=== PATIENT | male | born 1995 | race Caucasian/White ===

== ENCOUNTER 2020-08-23 07:31 | Emergency (ER) | payer OTHER, SELFPAY ==
[2020-08-23 07:43] VITALS: BP 146/68; PULSE 68; O2SAT 99
[2020-08-23 07:44] VITALS: BP 146/68; PULSE 69; RESP 16; TEMP 36.6; O2SAT 98; BMI 24.1
--- NOTE | 2020-08-23 07:49 | XR_ITS ---
PROCEDURE: XR CHEST 2V CLINICAL HISTORY: COUGH COMPARISON: No exams were available for comparison FINDINGS: The cardiomediastinal silhouette and pulmonary vascularity are within normal limits. No lobar consolidation or collapse. There is a 6 mm nodular opacity in the left lung base nonspecific. Stability may be confirmed with follow-up. No acute bony abnormalities. IMPRESSION: No acute finding. Nonspecific left basilar nodular opacity Dictated by: Isrrael Horta MD 08/23/2020 08:56 Isrrael Horta MD in [place] 08/23/2020 08:56
[2020-08-23 07:58] LABS: Adenovirus,PCR Not Detected (NotDetected); Bordetella Pertussis Not Detected (NotDetected); Chlamydophila Pneumoniae, PCR Not Detected (NotDetected); Coronavirus 19, PCR Not Detected (NotDetected); Coronavirus 229E Not Detected (NotDetected); Coronavirus OC43 Not Detected (NotDetected); Coronovirus HKU1,PCR Not Detected (NotDetected); Human Metapneumovirus Not Detected (NotDetected); Influenza A, PCR Not Detected (NotDetected); Influenza AH1, 2009 Not Detected (NotDetected); Influenza AH1, PCR Not Detected (NotDetected); Influenza AH3,PCR Not Detected (NotDetected); Influenza B, PCR Not Detected (NotDetected); Mycoplasma Pneumoniae, PCR Not Detected (NotDetected); Parainfluenza 1, PCR Not Detected (NotDetected); Parainfluenza 2, PCR Not Detected (NotDetected); Parainfluenza 3, PCR Not Detected (NotDetected); Parainfluenza 4, PCR Not Detected (NotDetected); Respiratory Syncytial Virus Not Detected (NotDetected); Rhinovirus/Enterovirus Not Detected (NotDetected)
--- NOTE | 2020-08-23 08:27 | [facility].EDGENADL ---
ED Disposition Clinical Impression: Upper respiratory infection Disposition: Home, Self-Care Condition on Discharge: Good Instructions: DI for Acute Bronchitis Referrals: PCP,No [Primary Care Provider] - - Critical Care Critical Care Time: No Attestation: On 08/23/20, the high probability of a clinically significant, sudden or life threatening deterioration of the following system(s) required my full and direct attention, intervention and personal management. The time I documented below is in addition to time spent performing reported procedures but includes the following listed in this critical care notation. Medical Decision Making - Medical Records Medical records reviewed: Yes: I reviewed the patient's medical records. - Prasanna Inquiry Pt receiving controlled substance: No Vital Signs: 08/23/20 07:43 08/23/20 07:44 Temperature 98 F Temperature Source Oral Pulse Rate 68 Pulse Rate [Radial] 69 Respiratory Rate 16 Blood Pressure 146/68 H Blood Pressure [Right Arm] 146/68 H Blood Pressure Mean 86 Blood Pressure Mean [Right Arm] 94 Blood Pressure Position [Right Arm] Sitting 02 Sat by Pulse Oximetry 99 98 Oxygen Delivery Method Room Air Orders (Tests/Meds): ORDERS Category Date Time Status Chest XR 2 view (NOT portable) [XR chest 2V] Stat Exams 08/23/20 07:49 Taken Full Resp Panel w/COVID ([facility]) Routine Lab 08/23/20 07:50 Received Medical Decision Narrative: 35-year-old male presents with congestion and rhinorrhea for the last day. He is concerned about COVID-19, test has been ordered. Chest x-ray was ordered prior to my arrival, I doubt pneumonia acute coronary syndrome pulmonary embolism or any other emergent pathology. He is very comfortable in the bed with normal vital signs. X-ray read by myself shows no evidence of large consolidation or pleural effusion or pneumothorax. On reassessment he continues to be in no acute distress. Recommend quarantine precautions until symptomatic improvement per CDC guidelines and discharged home The COVID-19 test will return within the next couple hours. Plan to call patient at that time versus they called emergency department for the result. General Adult HPI - General Chief complaint: Upper Respiratory Infection Stated complaint: runny nose, congestion Time Seen by Provider: 08/23/20 08:15 Mode of Arrival: Ambulatory Limitations: No Limitations Description of Symptoms (Recalled from ER Triage Doc. by RN): TO ED PER [facility] CAR WITH C/O RUNNY NOSE, CHEST CONGESTION STARTING YESTERDAY. PT DENIES FEVER, CHILLS, NAUSEA, VOMITING. CPTA NONE - History of Present Illness HPI narrative: 35-year-old male presents with congestion and runny nose for the last day. No cough chest pain headache or fever. No ear pain. He is mainly here per request of COVID-19 test. Onset (ago): day(s) (1) Consistency: intermittent Relieving factors: rest Associated symptoms: negative: confusion, chest pain, cough, diaphoresis, fever/chills, headaches - Related Data Home Medications Medication Instructions Recorded Confirmed No Known Home Medications 08/23/20 08/23/20 Allergies Allergy/AdvReac Type Severity Reaction Status Date / Time No Known Allergies Allergy Verified 08/23/20 07:49 [facility] History - Hepatitis A Screen Drug use history?: No High risk sexual behaviors?: No History of sexually transmitted infection?: No Currently employed?: No Childcare worker?: No Do you have indoor plumbing?: Yes Do you have electricity?: Yes Attestation statement:: This patient has been screened for Hepatitis A risk factors. ROS Obtained: Yes All systems reviewed & no additional complaints - Constitutional Constitutional: Denies body ache, Denies chills - ENT Ears, Nose, Mouth, and Throat: Denies dizziness - Cardiovascular Cardiovascular: Denies chest pain - Respiratory Respiratory: Denies shortness of breath - Gastrointestinal Cuco
[2020-08-23 09:03] VITALS: BP 135/84; PULSE 54; RESP 19; TEMP 36.6; O2SAT 100
[2020-08-23 10:12] LABS: Coronavirus NL63 Detected (NotDetected)
== END 2020-08-23 09:04 | disposition home or self-care (01) ==
PROVIDERS: Emergency Provider Emergency Medicine
DX: J06.9 Acute upper respiratory infection, unspecified (principal); B34.2 Coronavirus infection, unspecified
CPT/HCPCS: 71046; 87581; 87633; 87798; 99282